=== PATIENT | female | born 1955 | race Asian ===

== ENCOUNTER → 2016-04-10 | Outpatient (CLI) | payer MEDICAID ==
--- NOTE | 2016-04-10 18:14 | DX ---
Left RIBS, 2 views History: Fall, rib pain, R07.81, Findings: No evidence of pneumothorax or pulmonary contusion. Buckling of the anterior aspect of the left sixth rib representing fracture of indeterminate age. No definite additional displaced rib fract ures. Mild osteoarthritis in the left acromioclavicular joint. Osteophytes involving the left humeral head with possible lateral impingement. Impression: 1. Nondisplaced left sixth rib anterior fracture of indeterminate age. 2. No pneumothorax. 3. Osteoarthritis left shoulder.
== END ==
LOC: FIMAGING 15:30
PROVIDERS: ATTEND Physician Assistant
DX: S22.32XA Fracture of one rib, left side, initial encounter for closed fracture (principal); M19.012 Primary osteoarthritis, left shoulder

== ENCOUNTER → 2016-09-14 | Outpatient (CLI) | payer MEDICAID | LOC: FIMAGING 15:40 | PROVIDERS: ATTEND Physician Assistant | DX: Z12.31 Encounter for screening mammogram for malignant neoplasm of breast (principal) | CPT/HCPCS: G0202 ==